=== PATIENT | male | born 1985 | race Two or more races ===

== ENCOUNTER 2024-07-15 09:47 | Emergency (ER) | payer BC, SELFPAY ==
[2024-07-15] VITALS (7 sets, daily range): BP systolic 115–133; BP diastolic 66–87; BMI 27.0
--- NOTE | 2024-07-15 10:01 | ED.GENMED ---
History of Present Illness
General
Chief Complaint: Fever
Time Seen by Provider: 07/15/24 10:01
History of Present Illness
History of Present Illness:
HPI: The patient presents with fevers intermittently over the past 3 days. His Tmax was 39 Celsius. He currently feels somewhat clammy and he did take Tylenol earlier today. He also was placed on doxycycline for a erythematous lesion to the
medial aspect of the right distal lower extremity.
EXAM:
GENERAL: Well appearing in no distress
HEENT: Moist oral mucosa
CARDIOVASCULAR: No murmurs, normal heart rate, regular rhythm, No chest wall tenderness
PULMONARY: No respiratory distress, breath sounds are clear and equal
ABDOMEN: Soft with no peritoneal signs, no tenderness
NEUROLOGIC: Excellent strength all extremities, no coordination deficits
PSYCHIATRIC: Appropriate mental status, normal insight and judgement
EXTREMITIES: Nontender, no edema, moves all extremities equally
SKIN: The patient's skin is somewhat clammy, there is a dark erythematous ovoid lesion which is slightly raised to the medial aspect of the right distal lower extremity
TIME OF INITIAL ENCOUNTER: 10 AM
NUMBER AND COMPLEXITY OF PROBLEMS ADDRESSED AT THE ENCOUNTER
� Chronic conditions affecting care: Asthma
� Acute Exacerbation and/or Progression of Chronic Illness: This is an acute problem
� Differential Diagnosis includes: Viral syndrome, cellulitis, inflammatory reaction from spider bite, Lyme disease, bacteremia, sepsis
AMOUNT AND/OR COMPLEXITY OF DATA TO BE REVIEWED AND ANALYZED
� I performed an independent evaluation of and my interpretation is:
EKG:
CT:
X-rays: Chest x-ray negative
Laboratory Studies: White count 7.3, hemoglobin 14.4, lactic is normal at 1.6, total bili 2.7, transaminases are elevated at 90 and alk phos is slightly high; urinalysis shows no sign of infection but does show 1+ bilirubin
Other:
� Review of other/old records: The patient was here in 2018 for operative repair of the left medial meniscus
� Clinical information was obtained by an independent historian: None needed
� Prescriptions/Medications Considered but not given:
� Further testing considered but not performed:
RISK OF COMPLICATIONS AND/OR MORBIDITY OR MORTALITY OF PATIENT MANAGEMENT
� Social determinants of health affecting care: Lives at home
� Discussion with other providers: I discussed case with Dr. Guzman who recommends additional tickborne illness testing
� Escalation of care including admission/observation vs risk of discharge considered: The patient reports fevers to 39 Celsius at home and also has a lesion to the distal right lower extremity. Initial vital signs are not
consistent with sepsis however the patient did have Tylenol just prior to arrival. Mild LFT abnormality and ultrasound suggest the possible of hepatitis. Hepatitis panel pending. Tickborne illness labs are also pending.
Phy Exam
Physical Exam
Physical Exam:
See HPI
Course
Orders/Labs/Results
Orders:
Orders
07/15/24 10:14
0.9% Sodium Chloride 1000 ml [Nss] 1,000 ml IV BOLUS
07/15/24 10:17
Complete Blood Count/With Diff Urgent
Comprehensive Metabolic Panel Urgent
Lactic Acid Q4H
Comment: CANCEL 2nd LACTIC ACID IF 1st LACTIC ACID IS LESS THAN 2
Blood Culture Routine
RANJANA Source: Blood/Venous
Specimen Description:
Blood Culture Urgent
RANJANA Source: Blood/Venous
Specimen Description:
07/15/24 10:18
Lyme Progressive Urgent
07/15/24 10:20
CR Chest - 2 Views Urgent
Comment:
Reason For Exam: fevers
07/15/24 11:12
US Abdomen Complete/Upper Urgent
Comment:
Reason For Exam: fever abnormal LFTs
07/15/24 11:25
Urinalysis Reflex To Culture Urgent
Date Specimen was Collected: 07/15/24
Time Specimen was Collected: 10:30
07/15/24 12:54
Hepatitis A IgM Antibody Urgent
Hepatitis B Core Ab, IgM Urgent
Hepatitis B Surface Antibody Urgent
Hepatitis B Surface Antigen Urgent
Hepatitis C Antibody Urgent
07/15/24 13:10
Monotest Urgent
07/15/24 13:25
Ketorolac [Toradol] 15 mg .ROUTE .STK-MED ONE
07/15/24 13:26
Ketorolac [Toradol] 15 mg IV NOW STA
Abnormal Lab Results
07/15/24 07/15/24
10:17 11:25
RBC 4.67 L 10^6/uL
(4.70-6.10)
Absolute Lymphs (auto) 1.1 L 10^3/uL
(1.2-3.4)
Neutrophils % 77.7 H %
(42.2-75.2)
Lymphocytes % 15.6 L %
(20.5-51.1)
Glucose 160 H mg/dl
(70-99)
Total Bilirubin 2.7 H mg/dl
(0.2-1.3)
AST 91 H U/L
(17-59)
ALT 90 H U/L
(0-50)
Alkaline Phosphatase 174 H U/L
(38-126)
Urine Bilirubin 1+ A
(Negative)
07/15/24 10:17
07/15/24 10:17
Vital Signs
Initial and Last Documented VS:
Initial Vital Signs
Temp Pulse BP Pulse Ox
98.2 F 86 131/73 97
07/15/24 09:52 07/15/24 09:52 07/15/24 09:52 07/15/24 09:52
Last Documented Vital Signs
Temp Pulse Resp BP Pulse Ox
98.2 F 66 19 126/87 98
07/15/24 09:52 07/15/24 11:24 07/15/24 11:14 07/15/24 11:23 07/15/24 11:24
*Critical Care Note
Total Time (30-74mins, 75-104mins- exclusive of procedures): Not Applicable
ED Attending Note
-
Portions of this chart may have been created with voice recognition software.� Occasional wrong word or��sound alike� substitutions may have occurred due to the inherent limitations of voice recognition software.
Discharge Plan
Departure
Patient Disposition: Home (Routine Discharge)
Date of Disposition: 07/15/24
Time of Disposition: 13:27
Patient with high blood pressure during this ER visit?: Yes
Discharge Problem:
Acute febrile illness
Instructions: Fever, Adult (DC)
Prescriptions:
No Action
No Current Medications
0
Referrals:
Ariana Allen CRNP [Family Provider] -
Activity Restrictions/Additional Instructions:
The cause of your symptoms is unclear. Your white blood cell count is normal. Your liver numbers are slightly abnormal and ultrasound imaging suggested the possibility of hepatitis. I think this is unlikely but hepatitis testing is pending.
Lyme, and other tickborne illness testing is pending including babesiosis, anaplasmosis, and ehrlichiosis. The urinalysis does not show any signs of infection. Continue doxycycline.
Interventions
Interventions:
*Risk Screen - Suicide Last Done: 07/15/24 10:15
*General Assessment Last Done: 07/15/24 10:15
*Neglect/Abuse Screening Last Done: 07/15/24 10:15
ED- Fall Risk Assessment Last Done: 07/15/24 10:15
*ED COVID-19 Vaccine History Last Done: 07/15/24 10:15
ED- Neurological Assessment Last Done: 07/15/24 10:15
ED-Skin Assessment Last Done: 07/15/24 10:15
Discharge Date and Time
Print Language: ROMANSH
--- NOTE | 2024-07-15 10:08 | EDRN ---
Dr. Cage currently at the pts bedside speaking with the pt
[2024-07-15] MEDS: NSS 1000 IV (10:26)
--- NOTE | 2024-07-15 10:32 | EDRN ---
PIV placed, labs drawn and sent, IVF Bolus hung and running, the pt was updated on plan of care, was told to notify this RN when he has to urinate, VS WNL, no s/s of distress, the pt is resting in stretcher in the lowest position, side rails up x1,
HOB elevated, call trinh within reach, will continue to monitor the pt closely
[2024-07-15 10:41] LABS: % Basophils 0.1 % (0-2); % Immature Granulocytes 0.3 % (0-0.5); % Lymphocytes 15.6 % (20.5-51.1); % Monocytes 6.3 % (1.7-9.3); % Neutrophils 77.7 % (42.2-75.2); Absolute Lymphocytes 1.1 10^3/uL (1.2-3.4); Absolute Monocytes 0.5 10^3/uL (0.1-0.6); Absolute Neutrophils 5.7 10^3/uL (1.4-6.5); Hematocrit 40.4 % (39.0-52.0); Hemoglobin 14.4 g/dL (13.0-18.0); Mean Corp Hgb Conc. 35.6 g/dL (33.0-37.0); Mean Corpuscular Hgb 30.8 pg (27.0-31.0); Mean Corpuscular Volume 86.5 fL (80.0-94.0); Mean Platelet Volume 9.9 fL (7.4-10.4); Nucleated Red Blood Cells % 0 % (-); Platelet Count 154 10^3/uL (130-400); Red Blood Cell Count 4.67 10^6/uL (4.70-6.10); Red Cell Dist. Width 12.6 % (11.5-14.5); White Blood Cell Count 7.3 10^3/uL (4.8-10.8)
[2024-07-15 10:57] LABS: Lactic Acid 1.6 mmol/L (0.7-2.0)
[2024-07-15 10:58] LABS: ALT (SGPT) 90 U/L (0-50); AST (SGOT) 91 U/L (17-59); Alkaline Phosphatase 174 U/L (38-126); Blood Urea Nitrogen 9 mg/dl (9-20); Calcium 9.4 mg/dl (8.4-10.2); Carbon Dioxide 29 mmol/L (22-30); Chloride 99 mmol/L (98-107); Estimated Creatinine Clearance > 125 ml/min; Glucose 160 mg/dl (70-99); Potassium 3.9 mmol/L (3.5-5.1); Sodium 139 mmol/L (135-145); Total Bilirubin 2.7 mg/dl (0.2-1.3); Total Protein 6.9 g/dl (6.3-8.2); eGFR > 60.00
--- NOTE | 2024-07-15 11:15 | EDRN ---
Dr. Cage currently at the pts bedside speaking with the pt
--- NOTE | 2024-07-15 11:27 | EDRN ---
the pt was able to provide a urine specimen, the urine was sent to the lab, the pt is being taken to ultrasound
[2024-07-15 11:41] LABS: Urine Albumin Trace (Neg - Trace); Urine Bilirubin 1+ (Negative); Urine Character Clear (Clear); Urine Color Yellow; Urine Glucose Negative (Negative); Urine Ketone Negative (Negative); Urine Leukocyte Negative (Negative); Urine Nitrite Negative (Negative); Urine Occult Blood Negative (Negative); Urine Urobilinogen 1+ (Neg - 1+); Urine pH 6.5 (5.0-9.0)
[2024-07-15] MEDS: TORADOL 15 MG IV (13:35)
[2024-07-15 13:53] LABS: Monotest Positive (Negative)
[2024-07-15 20:25] LABS: Hepatitis B Surface Antigen Negative (Negative)
[2024-07-15 20:43] LABS: Hepatitis B Surface Antibody Positive; Hepatitis C Antibody Negative (Negative)
[2024-07-15 21:39] LABS: Hepatitis A IgM Antibody Negative (Negative); Hepatitis B Core Ab, IgM Negative (Negative)
[2024-07-18 13:55] LABS: Lyme Antibody Screen, EIA Negative (Negative)
[2024-07-19 14:10] LABS: Ehrlichia chaffeensis IgG Ab <1:64 (<1:64); Ehrlichia chaffeensis IgM Ab < 1:16 (< 1:16)
[2024-07-19 14:51] LABS: Anaplasma phagocytophilum IgG <1:80 (<1:80); Anaplasma phagocytophilum IgM < 1:16 (< 1:16)
== END 2024-07-15 13:42 | disposition home or self-care (01) ==
LOC: EMR 09:47
PROVIDERS: EMERGENCY PHYSICIAN Emergency Medicine; FAMILY PHYSICIAN Nurse Practitioner Adult Health
DX: R50.9 Fever, unspecified (principal); L98.9 Disorder of the skin and subcutaneous tissue, unspecified; R79.89 Other specified abnormal findings of blood chemistry; R03.0 Elevated blood-pressure reading, without diagnosis of hypertension; Z88.5 Allergy status to narcotic agent
CPT/HCPCS: 99284; 96374; 96361; 71046; 76700; 80053; 81003; 83605; 85025; 86308; 86618; 86666; 86705; 86706; 86709; 86803; 87015; 87040; 87207; 87340